=== PATIENT | female | born 1975 | race Caucasian/White ===

== ENCOUNTER 2024-11-01 07:43 | Emergency (ER) | payer OTHER, SELFPAY ==
[2024-11-01 07:47] VITALS: BP 129/85; PULSE 91; TEMP 36.9; O2SAT 93; BMI 24.3
[2024-11-01 08:00] VITALS: O2SAT 94
--- NOTE | 2024-11-01 08:06 | ED_ITS ---
HPI HPI - General Adult General Chief complaint: Upper Respiratory Infection Stated complaint: URTI COMPLAINTS Time Seen by Provider: 11/01/24 07:51 Source: patient Mode of arrival: walk-in Limitations: no limitations History of Present Illness HPI narrative: 49-year-old female to the emergency department with chief complaint of cough, malaise, fevers. Patient reports that symptoms began a week ago. She reports she has increasingly productive sputum. It is greenish-yellow in color. She has sweats and chills. No known sick contacts. She reports that she has a burning pain in her chest when she coughs. Otherwise no chest pressure, sharp chest pain, shortness of breath. She is a smoker. Related Data Previous Rx's ?Medication ?Instructions ?Recorded amoxicillin 875 mg-potassium 1 tab PO Q12H #14 tabs 11/01/24 clavulanate 125 mg tablet azithromycin 250 mg tablet See Rx Instructions PO .COMPLEX #6 11/01/24 tabs imnvzgigowcbnfk-uhbmrpphkyvzfyx-FK 5 ml PO Q4H PRN cold symptoms #118 11/01/24 2 mg-30 mg-10 mg/5 mL oral syrup mL (Bromfed DM) prednisone 20 mg tablet 40 mg (2 x 20 mg) PO DAILY 5 days 11/01/24 #10 tabs Allergies Allergy/AdvReac Type Severity Reaction Status Date / Time No Known Drug Allergies Allergy Verified 11/01/24 07:47 Opioid HPI Opioid Management Most Recent Opioid Data: Last Pain Scale 6 11/01/24 07:58 11/01/24 Review of Systems ROS Status of ROS 10 or more systems reviewed and unremark able except as noted in history and below [facility] Medical History (Updated 11/01/24 @ 08:01 by Saeed Freeman MD) No pertinent past medical history ?Z78.9 - Other specified health status (ICD-10) Social History Little interest or pleasure in doing things: not at all Feeling down, depressed, or hopeless: not at all Exam Narrative Exam Narrative: VITALS: I have reviewed the triage vital signs. GENERAL: Well developed, well appearing adult in no acute distress. NEURO: Alert and oriented. Moves all extremities. Face is symmetric and expressive. EYES: PERRL. No scleral icterus or conjunctival injection. No discharge. HENT: Normocephalic, atraumatic. Hearing is grossly intact. Nares grossly patent and without discharge. Mucous membranes moist. NECK: No JVD. Patient moves neck without restriction. CARDIO: Rhythm regular. Normal rate. No murmur, rub, or gallop. Pulses equal bilaterally in the upper and lower extremity. No lower extremity edema. PULM: Rhonchi that clear with coughing. No conversational dyspnea. No splinting, stridor, or accessory muscle use. GI/: Abdomen is soft and non-tender. Normoactive bowel sounds. EXTREMITIES: Symmetric muscle bulk. No joint swelling. No clubbing, cyanosis, or deformity. SKIN: Warm and dry. Normal turgor. No rash or lesions appreciated. PSYCH: Mood, affect, and interaction is appropriate to the setting. Constitutional Vital Signs, click to edit/add: Last Vital Signs Temp 98.5 F 11/01/24 07:47 Pulse 91 H 11/01/24 07:47 Resp 16 11/01/24 07:47 BP 129/85 11/01/24 07:47 Pulse Ox 94 L 11/01/24 08:00 O2 Del Method Room Air 11/01/24 08:00 Course Vital Signs Vital signs: Vital Signs Temperature 98.5 F 11/01/24 07:47 Pulse Rate 91 H 11/01/24 07:47 Respiratory Rate 16 11/01/24 07:47 Blood Pressure 129/85 11/01/24 07:47 Pulse Oximetry 93 L 11/01/24 07:47 Oxygen Delivery Method Room Air 11/01/24 07:47 Temperature 98.5 F 11/01/24 07:47 Pulse Rate 91 H 11/01/24 07:47 Respiratory Rate 16 11/01/24 07:47 Blood Pressure 129/85 11/01/24 07:47 Pulse Oximetry 94 L 11/01/24 08:00 Oxygen Delivery Method Room Air 11/01/24 08:00 Medical Decision Making MDM Narrative Medical decision making narrative: 49-year-old female to the emergency department with chief complaint of cough and flulike illness. Vital stable, the patient is afebrile. She is in no respiratory distress and is saturating well on room air. She has rhonchi that clear with coughing. 1 week history of cough with increasingly productive sputum. High predominance of mycoplasma pneumonia in the community at this time. Will cover her for pneumonia. Given her smoking history we will cover her with both Augmentin and azithromycin. Bromfed and prednisone to help with her cough. She is to follow-up with her PCP. Return precautions were discussed. All questions were answered. The patient was discharged home. Medical Records Medical records reviewed: Yes I reviewed the patient's medical records Discharge Plan Discharge Chief Complaint: Upper Respiratory Infection Clinical Impression: Pneumonia Patient Disposition: Home, Self-Care Time of Disposition Decision: 08:01 Condition: Good Mode of Transportation: Private Vehicle Prescriptions / Home Meds: New azithromycin 250 mg tablet See Rx Instructions .ROUTE .COMPLEX Qty: 6 0RF Rx Instructions: For 250 mg dose pack: take 500 mg today (day 1), then 250 mg for 4 days (days 2-5) ppwtzgjqjsksaix-dizzfbyae-IT [Bromfed DM] 2-30-10 mg/5 mL syrup 5 ml PO Q4H PRN (Reason: cold symptoms) Qty: 118 0RF prednisone 20 mg tablet 40 mg PO DAILY 5 Days Qty: 10 0RF amoxicillin-pot clavulanate 875-125 mg tablet 1 tab PO Q12H Qty: 14 0RF Print Language: Frisian Instructions: Community Acquired Pneumonia (ED) Additional Instructions: Call the office of your primary care doctor to arrange for follow-up within the above-stated timeframe. Your ED visit was focused on your acute issue and does not replace primary care. You should review your labs, imaging, and diagnoses from this ED visit with your primary care physician. There may be non-emergent/ incidental findings that need further evaluation. You should review your vital signs including blood pressure with your PCP. If you were prescribed medications you should discuss possible side-effects and drug interactions with your pharmacist. Call 911 or go to the nearest Emergency Department if you develop any new or worsening symptoms. Seek immediate medical attention if you develop: worsening shortness of breath, difficulty breathing, chest pain, nausea, vomiting, weakness, numbness, tingling, excessive sweating, loss of motion in your arms or legs, or any new or worsening symptoms. Referrals: FABIAN FINNEY [Primary Care Provider] - 1 week
== END 2024-11-01 08:18 | disposition home or self-care (01) ==
PROVIDERS: Emergency Provider Student in an Organized Health Care Education/Training Program; PCP Family Medicine
DX: J18.9 Pneumonia, unspecified organism (principal); F17.200 Nicotine dependence, unspecified, uncomplicated
CPT/HCPCS: 99283